=== PATIENT | female | born 1930 | race African-American/Black ===

== ENCOUNTER 2017-12-29 10:24 | Emergency (ER) | payer OTHER, SELFPAY ==
[~2017-12-29] VITALS: Ht 154.9 cm; Wt 54.4 kg
[~2017-12-29 10:24] MED LIST: BISACODYL SUPP10 MG RECTAL; COSOPT OCUMETER10 M1 OP; ENOXAPARIN30 MG/0.1 SUBQ; LOSARTAN-HCTZ1 EAC1 PO; METFORMIN HCL500 MG PO; NORVASC5 MG PO; SIMVASTATIN40 MG PO; TYLENOL EXTRA500 MG PO; XALATAN2.5 ML OPHTHALMIC; XANAX 0.25 MG0.25 MG PO
[2017-12-29 11:35] VITALS: BP 180/92
== END 2017-12-29 11:36 | disposition home or self-care (01) ==
LOC: ER 10:24
DX: R04.0 Epistaxis (principal); I10 Essential (primary) hypertension; E11.9 Type 2 diabetes mellitus without complications

== ENCOUNTER 2019-08-07 11:13 | Emergency (ER) | payer OTHER ==
[~2019-08-07] VITALS: Ht 157.5 cm; Wt 54.4 kg
[2019-08-07 11:27] LABS: URINE BILIRUBIN NEGATIVE (Negative); URINE BLOOD 3+ (Negative); URINE CLARITY CLOUDY; URINE COLOR RED; URINE GLUCOSE-RANDOM* TRACE (Negative); URINE KETONES TRACE (Negative); URINE PROTEIN (DIPSTICK) 2+ (Negative)
[2019-08-07 11:32] LABS: URINE LEUKOCYTES-REFLEX 2+ (Negative); URINE NITRITE-REFLEX POSITIVE (Negative)
[2019-08-07 11:34] LABS: URINE RBC >20 Many /HPF (0-2)
[2019-08-07 11:35] LABS: BACTERIA-REFLEX 1-9 Few /HPF (None Seen); CASTS None Seen /LPF (None Seen); CRYSTALS None Seen /LPF (None Seen); SQUAMOUS 0-3 Few /LPF (0-3); URINE WBC-REFLEX 6-15 Few /HPF (0-5)
[2019-08-07 12:12] LABS: ABSOLUTE NEUTROPHILS 3.4 thou/uL (1.4-8.2); BASOPHILS 1.6 % (0.0-2.0); EOSINOPHILS 0.8 % (0.0-3.0); HEMATOCRIT 35.6 % (37.0-47.0); LYMPHOCYTES 23.5 % (24.0-44.0); MCH 29.5 pg (26.0-34.0); MCHC 33.8 g/dL (28.0-37.0); MCV 87.3 fL (80.0-100.0); MONOCYTES 11.7 % (1.0-8.0); PLATELET COUNT 398 thou/uL (150-400); POLYS 62.4 % (36.0-66.0); RBC 4.07 mil/uL (4.20-5.00); RDW 12.3 % (10.5-14.5); WBC 5.4 thou/uL (4.0-11.0)
[2019-08-07 12:22] LABS: CALCIUM 9.6 mg/dL (8.5-10.1); CREATININE 1.6 mg/dL (0.6-1.0); POTASSIUM 3.6 mmol/L (3.5-5.1)
[2019-08-07 12:28] LABS: TOTAL BILIRUBIN 0.4 mg/dL (<0.1-1.0); TOTAL PROTEIN 8.1 g/dL (6.4-8.2)
[2019-08-07] MEDS ORDERED: NITROFURANTOIN100 MG PO (12:49)
[2019-08-07 13:52] VITALS: BP 126/50
[2019-08-07] MEDS ORDERED: MACROBID 100 M100 M1 PO (14:55)
[2019-08-07] MEDS ORDERED: MACROBID 100 M100 MG PO (14:57)
== END 2019-08-07 13:59 | disposition home or self-care (01) ==
LOC: ER 11:13
PROVIDERS: Emergency Medicine; Physician Assistant
DX: N39.0 Urinary tract infection, site not specified (principal); E86.0 Dehydration; I10 Essential (primary) hypertension; E11.9 Type 2 diabetes mellitus without complications; Z85.42 Personal history of malignant neoplasm of other parts of uterus; Z98.41 Cataract extraction status, right eye; Z98.42 Cataract extraction status, left eye

== ENCOUNTER 2019-08-09 20:03 | Emergency (ER) | payer OTHER ==
[~2019-08-09] VITALS: Ht 157.5 cm; Wt 54.4 kg
[~2019-08-09 20:03] MED LIST changes: +MACROBID 100 M100 M1 PO; +MACROBID 100 M100 MG PO; +NITROFURANTOIN100 MG PO
[2019-08-09] MEDS ORDERED: TRADJENTA5 MG (20:13)
[2019-08-09 20:31] LABS: URINE BLOOD 3+ (Negative); URINE CLARITY TURBID; URINE COLOR RED; URINE GLUCOSE-RANDOM* NEGATIVE (Negative); URINE KETONES NEGATIVE (Negative); URINE LEUKOCYTES-REFLEX TRACE (Negative); URINE NITRITE-REFLEX POSITIVE (Negative); URINE PROTEIN (DIPSTICK) 2+ (Negative); URINE SPECIFIC GRAVITY 1.015 (1.005-1.035); URINE UROBILINOGEN 0.2 E.U./dl (0.2-1.0)
[2019-08-09 20:33] LABS: ICTOTEST (BILI CONFIRMATORY) Negative (Negative); URINE BILIRUBIN NEGATIVE (Negative)
[2019-08-09 20:37] LABS: SQUAMOUS None Seen /LPF (0-3)
[2019-08-09 20:38] LABS: BACTERIA-REFLEX 1-9 Few /HPF (None Seen); CASTS None Seen /LPF (None Seen); CRYSTALS None Seen /LPF (None Seen); URINE RBC >20 Many /HPF (0-2); URINE WBC-REFLEX 6-15 Few /HPF (0-5)
[2019-08-09 20:54] LABS: HEMATOCRIT 32.7 % (37.0-47.0); MCH 29.2 pg (26.0-34.0); MCHC 33.7 g/dL (28.0-37.0); MCV 86.7 fL (80.0-100.0); RBC 3.77 mil/uL (4.20-5.00); RDW 12.1 % (10.5-14.5); WBC 5.2 thou/uL (4.0-11.0)
[2019-08-09 21:03] LABS: PLATELET COUNT 316 thou/uL (150-400)
[2019-08-09 21:10] LABS: ALBUMIN 3.8 g/dL (3.4-5.0); CALCIUM 9.4 mg/dL (8.5-10.1); CREATININE 1.4 mg/dL (0.6-1.0); DIRECT BILIRUBIN 0.1 mg/dL (<0.1-0.3); MAGNESIUM 1.3 mg/dL (1.8-2.4); POTASSIUM 3.5 mmol/L (3.5-5.1); TOTAL BILIRUBIN 0.3 mg/dL (<0.1-1.0); TOTAL PROTEIN 7.2 g/dL (6.4-8.2)
[2019-08-09 21:29] LABS: ABSOLUTE NEUTROPHILS 3.5 thou/uL (1.4-8.2)
[2019-08-09 21:30] LABS: PLATELET ESTIMATE NORMAL
[2019-08-09] MEDS ORDERED: KEFLEX500 M1 PO (23:11)
[2019-08-09 23:22] VITALS: BP 143/60
== END 2019-08-09 23:35 | disposition home or self-care (01) ==
LOC: ER 20:03
PROVIDERS: Emergency Medicine
DX: N39.0 Urinary tract infection, site not specified (principal); E87.1 Hypo-osmolality and hyponatremia; I10 Essential (primary) hypertension; E11.9 Type 2 diabetes mellitus without complications; Z85.42 Personal history of malignant neoplasm of other parts of uterus